=== PATIENT | male | born 1990 | race Caucasian/White ===

== ENCOUNTER 2020-04-30 17:59 | Emergency (ER) | payer BC, SELFPAY ==
[2020-04-30 20:45] VITALS: BP 120/70; PULSE 60; RESP 18; TEMP 37; O2SAT 100
== END 2020-04-30 21:31 | disposition home or self-care (01) ==
LOC: UTC 18:06
PROVIDERS: Emergency Provider Nurse Practitioner
DX: Z53.21 Procedure and treatment not carried out due to patient leaving prior to being seen by health care provider (principal)